=== PATIENT | male | born 1955 | race Caucasian/White ===

== ENCOUNTER → 2017-05-08 | Outpatient (CLI) | payer OTHER ==
[~2017-05-08] VITALS: Ht 188 cm; Wt 163.3 kg
[~2017-05-08] MED LIST: CIALIS5 MG PO; CONCERTA36 MG PO; KLONOPIN2 MG PO; KLOR-CON 1010 ME1 PO; LASIX40 MG PO; LORCET 5-325 M1 EACH PO; MOBIC15 MG PO; SYNTHROID137 MCG PO; ULTRAM50 MG PO; WELLBUTRIN XL300 MG PO; ZESTRIL20 MG PO
[2017-05-08 12:27] LABS: CHLORIDE 113 mEq/L (99-109); POTASSIUM 4.5 mEq/L (3.7-5.4); SODIUM 145 mEq/L (136-147)
[2017-05-08 12:29] LABS: GLUCOSE 92 mg/dL (70-99)
[2017-05-08 12:30] LABS: ANION GAP 9 MEQ/L (2-14)
[2017-05-08 12:33] LABS: GFR ESTIMATE (CALCULATED) > 59 mL/min/; UREA NITROGEN (BUN) 16 mg/dL (9-23)
== END | disposition home or self-care (01) ==
LOC: AMB 11:01
PROVIDERS: Internal Medicine Gastroenterology
PROC: 0DJDXZZ Inspection of Lower Intestinal Tract, External Approach (ICD-10-PCS; principal; 2017-05-08)
DX: Z12.11 Encounter for screening for malignant neoplasm of colon (principal); Z53.09 Procedure and treatment not carried out because of other contraindication; R94.31 Abnormal electrocardiogram [ECG] [EKG]; I48.91 Unspecified atrial fibrillation
CPT/HCPCS: 80048; 93005; 99213

== ENCOUNTER → 2017-05-20 | Outpatient (CLI) | payer OTHER | END | disposition home or self-care (01) | LOC: NUC 09:27 | DX: R94.39 Abnormal result of other cardiovascular function study (principal); I10 Essential (primary) hypertension | CPT/HCPCS: 78452; 78999; 93017; A9500; J2785 ==

== ENCOUNTER → 2018-02-21 | Outpatient (CLI) | payer OTHER ==
[~2018-02-21] VITALS: Ht 182.9 cm; Wt 158.7 kg
[~2018-02-21] MED LIST changes: +XARELTO20 MG PO
[2018-02-21 13:06] LABS: CHLORIDE 109 mEq/L (99-109); POTASSIUM 4.4 mEq/L (3.7-5.4); SODIUM 143 mEq/L (136-147)
[2018-02-21 13:07] LABS: GLUCOSE 97 mg/dL (70-99)
[2018-02-21 13:11] LABS: CREATININE 1.3 mg/dL (0.6-1.3); GFR ESTIMATE (CALCULATED) > 59 mL/min/ (58.99-99999)
[2018-02-21 13:12] LABS: UREA NITROGEN (BUN) 15 mg/dL (9-23)
== END | disposition home or self-care (01) ==
LOC: AMB 02-05 13:00
PROVIDERS: Anesthesiology
DX: D12.2 Benign neoplasm of ascending colon (principal); D12.3 Benign neoplasm of transverse colon; K57.30 Diverticulosis of large intestine without perforation or abscess without bleeding; Z86.010 Personal history of colon polyps; Z80.0 Family history of malignant neoplasm of digestive organs; Z68.42 Body mass index [BMI] 45.0-49.9, adult; I10 Essential (primary) hypertension; E03.9 Hypothyroidism, unspecified; F41.9 Anxiety disorder, unspecified
CPT/HCPCS: 80048; 88305; J2250